=== PATIENT | male | born 1960 | race Caucasian/White ===

== ENCOUNTER 2019-06-14 07:18 | Emergency (ER) | payer MEDICAID, OTHER ==
[2019-06-14] MEDS ORDERED: ALBUTEROL INHALER 90MCG/INH IH ONE (07:58)
[2019-06-14] MEDS ORDERED: METHYLPREDNISOLONE SOD SUCC 125MG/2ML VIAL ONE (07:59)
== END 2019-06-14 08:17 | disposition left against medical advice (07) ==
LOC: EDBD 07:18 → EDH 07:18
DX: J44.9 Chronic obstructive pulmonary disease, unspecified (principal); Z76.5 Malingerer [conscious simulation]; J45.909 Unspecified asthma, uncomplicated; I10 Essential (primary) hypertension; I50.9 Heart failure, unspecified; Z72.0 Tobacco use
CPT/HCPCS: 96372; 99283; J2930

== ENCOUNTER 2019-07-09 16:46 | Inpatient (IN) | payer MEDICAID, OTHER ==
[~2019-07-09] VITALS: Ht 170.2 cm; Wt 66.4 kg
[~2019-07-09 16:46] MED LIST: ALBU0.63 IH; AZIT500T4 PO; GUAI120L62 PO; HYDR-4064 PO; LISI30TA4 PO; NAPR-1023 PO; PRED20TA3 PO
[2019-07-09] MEDS ORDERED: THIAMINE HCL 100 MG TABLET ONE (17:45)
[2019-07-09] MEDS ORDERED: AZITHROMYCIN 250 MG TABLET PO ONE (17:46)
[2019-07-09] MEDS ORDERED: METHYLPREDNISOLONE SOD SUCC 125MG/2ML VIAL ONE (17:46)
[2019-07-09] MEDS ORDERED: CEFTRIAXONE SODIUM 1 GM ONE (17:46)
[2019-07-09] MEDS ORDERED: TETANUS/DIPHTHERIA TOXOID [ADULT] 0.5 ML VIAL IM ONE (17:47)
[2019-07-09 18:37] LABS: APPEARANCE,URINE Clear (CLEAR); BILIRUBIN,URINE Negative (NEGATIVE); COLOR,URINE Yellow (YELLOW); GLUCOSE, URINE (UA) Negative (NEGATIVE); KETONES,URINE Trace mg/dL (NEGATIVE); LEUKOCYTE ESTERASE ,URINE Negative (NEGATIVE); NITRATE,URINE Negative (NEGATIVE); OCCULT BLOOD,URINE Negative (NEGATIVE); PROTEIN,URINE Negative (NEGATIVE)
[2019-07-09 18:45] LABS: AMPHET/METH SCREEN,URINE NEGATIVE (NEGATIVE); BARBITURATE SCREEN, URINE NEGATIVE (NEGATIVE); BENZODIAZEPINES SCREEN,URINE NEGATIVE (NEGATIVE); CANNABINOID SCREEN,URINE POSITIVE (NEGATIVE); COCAINE SCREEN,URINE NEGATIVE (NEGATIVE); OPIATE SCREEN,URINE POSITIVE (NEGATIVE); PHENCYCLIDINE SCREEN,URINE NEGATIVE (NEGATIVE)
[2019-07-09 18:58] LABS: BASOPHILS % (AUTO) 0.2 % (0.0-5.0); EOSINOPHILS % (AUTO) 0.4 % (0.0-8.0); HEMATOCRIT 38.5 % (42-54); LYMPHOCYTES % (AUTO) 17.2 % (21.0-51.0); MEAN CORPUSCULAR HEMOGLOBIN 33.4 pg (27.0-33.0); MEAN CORPUSCULAR HGB CONC 35.3 g/dL (32.0-36.0); MEAN CORPUSCULAR VOLUME 94.6 fL (79-99); MONOCYTES % (AUTO) 17.2 % (3.0-13.0); NEUTROPHILS % (AUTO) 63.5 % (40.0-77.0); NUCLEATED RED BLOOD CELLS 0.2 % (0.0-0.19); PLATELET COUNT (AUTO) 538 K/uL (130-400); RED BLOOD CELL COUNT(AUTO) 4.07 MIL/uL (4.50-6.20); RED CELL DISTRIBUTION WIDTH 15.3 % (11.0-15.5); WHITE BLOOD COUNT (AUTO) 13.1 K/uL (4.8-10.8)
[2019-07-09 19:04] LABS: BACTERIA,URINE Few /HPF (None Seen); MUCUS,URINE Few LPF (None Seen); SQUAMOUS EPITHELIAL CELL,UR Few /HPF (0-2)
[2019-07-09 19:08] LABS: AMYLASE 55 U/L (25-115); LIPASE 179 U/L (114-286)
[2019-07-09 19:17] LABS: POTASSIUM 3.6 mmol/L (3.5-5.1)
[2019-07-09 19:27] LABS: ALBUMIN 3.6 g/dL (3.5-5.0); BILIRUBIN,TOTAL 0.7 mg/dL (0.2-1.0); TOTAL PROTEIN, SERUM 6.3 g/dL (6.0-8.3)
[2019-07-09 19:35] LABS: CRP QUANTITATIVE < 2.00 mg/L (0.00-9.0); LACTATE DEHYDROGENASE 230 U/L (81-234)
[2019-07-09 19:53] LABS: INR 0.93 (0.85-1.15); PARTIAL THROMBOPLASTIN TIME 24.1 SEC (26.3-35.5); PROTHROMBIN TIME 10.1 SEC (9.6-11.6)
[2019-07-09] MEDS ORDERED: PHARMACY COMMUNICATION MISC PRN (20:00)
[2019-07-09] MEDS: CEFTRIAXONE SODIUM 1 GM IV SCH (20:00)
[2019-07-09] MEDS: AZITHROMYCIN 500MG+NS 250ML 250 ML IV SCH (20:00)
[2019-07-09] MEDS ORDERED: ONDANSETRON HCL 4 MG/2 ML VIAL IV PRN (20:00)
[2019-07-09] MEDS ORDERED: LACTULOSE 20 GM/30 ML UDCUP PO PRN (20:00)
[2019-07-09] MEDS ORDERED: THIAMINE HCL 100 MG, FOLIC ACID 1 MG, M.V.I. IV [ADULT] 10 ML in SODIUM CHLORIDE 0.9% 1... IV SCH (20:00)
[2019-07-09] MEDS ORDERED: ALBUTEROL INHALER 90MCG/INH IH PRN (20:00)
[2019-07-09] MEDS ORDERED: CHLORDIAZEPOXIDE HCL 25 MG CAP PO PRN ×2 (20:00)
[2019-07-09] MEDS ORDERED: ACETAMINOPHEN 325 MG TAB PO PRN ×2 (20:00)
[2019-07-09] MEDS ORDERED: LORAZEPAM 2 MG/ML 1 ML VIAL IVP PRN (20:00)
[2019-07-09 20:15] LABS: B-TYPE NATRIURETIC PEPTIDE 20 pg/mL (0-100)
[2019-07-09] MEDS: METHYLPREDNISOLONE SOD SUCC 40MG/ML 1ML IVP SCH (21:00)
[2019-07-09] MEDS: FAMOTIDINE 20MG TAB 20 MG TAB PO SCH (21:00)
[2019-07-09] MEDS ORDERED: HYDRALAZINE HCL 20 MG/ML VIAL IV PRN (21:15)
[2019-07-09] MEDS: LORAZEPAM 2 MG/ML 1 ML VIAL IVP PRN (22:43)
[2019-07-09 23:00] VITALS: BP 123/72
[2019-07-10 03:00] VITALS: BP 130/81
--- NOTE | 2019-07-10 07:30 | NUR ---
ASSESSMENT ENCOUNTERED PT A&OX3, CALM COOPERATIVE AND DOES NOT APPEAR TO BE IN ANY DISTRESS NOR ANY NEURO DEFICITS PRESENT. PT DENIES PAIN, SOB, NAUSEA. PT IS AMBULATORY, GAIT STEADY AND STRONG WITH STAND BY ASSIST. CALL LIGHT WITHIN REACH.
[2019-07-10 08:07] VITALS: BP 112/81
[2019-07-10 08:30] LABS: BASOPHILS % (AUTO) 0.6 % (0.0-5.0); HEMATOCRIT 40.6 % (42-54); LYMPHOCYTES % (AUTO) 3.9 % (21.0-51.0); MEAN CORPUSCULAR HEMOGLOBIN 32.6 pg (27.0-33.0); MEAN CORPUSCULAR HGB CONC 34.5 g/dL (32.0-36.0); MEAN CORPUSCULAR VOLUME 94.6 fL (79-99); MONOCYTES % (AUTO) 2.5 % (3.0-13.0); NEUTROPHILS % (AUTO) 91.2 % (40.0-77.0); PLATELET COUNT (AUTO) 534 K/uL (130-400); RED BLOOD CELL COUNT(AUTO) 4.29 MIL/uL (4.50-6.20); RED CELL DISTRIBUTION WIDTH 15.4 % (11.0-15.5); WHITE BLOOD COUNT (AUTO) 7.2 K/uL (4.8-10.8)
[2019-07-10 08:42] LABS: CREATININE 0.9 mg/dL (0.5-1.5); POTASSIUM 4.4 mmol/L (3.5-5.1)
[2019-07-10] MEDS ORDERED: ENOXAPARIN SODIUM 40 MG/0.4 ML SYRINGE SQ SCH (09:00)
[2019-07-10] MEDS ORDERED: LOPERAMIDE HCL 2 MG CAP PO SCH (11:00)
[2019-07-10] MEDS: METHYLPREDNISOLONE SOD SUCC 40MG/ML 1ML IVP SCH ×2 (11:10→20:59)
[2019-07-10] MEDS: FAMOTIDINE 20MG TAB 20 MG TAB PO SCH ×2 (11:11→20:59)
[2019-07-10] MEDS: LORAZEPAM 2 MG/ML 1 ML VIAL IVP PRN (11:23)
[2019-07-10 12:00] VITALS: BP 126/83
--- NOTE | 2019-07-10 14:14 | NUR ---
INITIAL FACE SHEET NUMBERS CHECKED AND NOT CORRECT FOR PATIENT. CALL TO [facility] PASTOR SANDRA, BACKGROUND INFO RECD. STATES HAS KNOWN PATIENT FOR MANY YEARS, IS ONLY CONTACT FOR PATIENT. LIVES IN [facility], NO FIXED ADDRESS, HAS [employer], GOES TO [facility] IN [place], FAMILY NUMBER GIVEN REGULO JOHNSON [phone] CALL IN TO PATIENT ROOM, PATIENT CONFIRMS ED SANDRA FIRST POINT OF CONTACT, CONFIRMS ED HAS SONS NUMBER BUT PATIENT DOES NOT, GAVE PERMISSION TO CALL REGULO JOHNSON TO UPDATE PATIENT STATES IS GOING TO TAKE CAB TO [place] TO BUY CLOTHES, THEN TAKE BUS TO BORDER ON DAY OF DISCHARGE, [facility] IS NOT GOING AMA AT THIS TIME Addendum: 07/10/19 at 1425 by IDALMIS HALE RN Amended: Links added.
--- NOTE | 2019-07-10 14:22 | NUR ---
[phone]- SON'S NUMBER, NOT IN SERVICE PATIENT STILL JUST HAS REC ED SANDRA ONLY POINT OF CONTACT, BUT THAT IS NOT LOCAL- LIVES IN [place]
[2019-07-10 16:36] VITALS: BP 111/76
[2019-07-10] MEDS ORDERED: HYDROCODONE/ACETAMINOPHEN 7.5/325 MG TAB PO PRN (18:45)
[2019-07-10 19:00] VITALS: BP 124/79
[2019-07-10] MEDS: CEFTRIAXONE SODIUM 1 GM IV SCH (20:59)
[2019-07-10] MEDS: AZITHROMYCIN 500MG+NS 250ML 250 ML IV SCH (20:59)
[2019-07-10] MEDS ORDERED: LACTOBACILLUS RHAMNOSUS GG 1 EACH CAP.SPRINK PO SCH (21:00)
--- NOTE | 2019-07-10 22:20 | NUR ---
Patient requesting crackers and juice, patient's room and bathroom smells like cigarette smoke, patient denies. Frame Expander made aware. Patient requesting to leave AMA and asked for help to pack up his belongings. Patient signed AMA papers, said he has no complaint, just can't be confined. He [facility]. IV removed and patient left the floor at 2247.
[2019-07-11] MEDS ORDERED: THIAMINE HCL 100 MG TABLET PO SCH (09:00)
[2019-07-11] MEDS ORDERED: FOLIC ACID/VITAMIN B COMP W-C 1 CAP TAB PO SCH (09:00)
[2019-07-17] MEDS ORDERED: ERGOCALCIFEROL (VITAMIN D2) 50,000 UNIT CAPSULE PO SCH (09:00)
== END 2019-07-10 22:47 | disposition left against medical advice (07) | DRG 871 ==
LOC: EDH 16:46 → EDHIP 16:47 → 2AH 21:55
PROVIDERS: ADMIT Internal Medicine; ATTEND Internal Medicine
PROC: 3E0234Z Introduction of Serum, Toxoid and Vaccine into Muscle, Percutaneous Approach (ICD-10-PCS; principal; 2019-07-09)
DX: A41.9 Sepsis, unspecified organism (principal); J18.9 Pneumonia, unspecified organism; J44.0 Chronic obstructive pulmonary disease with (acute) lower respiratory infection; J44.1 Chronic obstructive pulmonary disease with (acute) exacerbation; E87.1 Hypo-osmolality and hyponatremia; I11.0 Hypertensive heart disease with heart failure; F17.200 Nicotine dependence, unspecified, uncomplicated; Z53.29 Procedure and treatment not carried out because of patient's decision for other reasons; F10.20 Alcohol dependence, uncomplicated; I50.9 Heart failure, unspecified; Y90.1 Blood alcohol level of 20-39 mg/100 ml; F12.90 Cannabis use, unspecified, uncomplicated; F11.90 Opioid use, unspecified, uncomplicated; Z82.49 Family history of ischemic heart disease and other diseases of the circulatory system; Z71.41 Alcohol abuse counseling and surveillance of alcoholic; Z71.6 Tobacco abuse counseling; Z23 Encounter for immunization
CPT/HCPCS: 36415; 71045; 80048; 80053; 80305; 81001; 82150; 82550; 82728; 83605; 83615; 83690; 83880; 84145; 84484; 85025; 85378; 85610; 85730; 86140; 87040; 87633; 87804; 90714; 93005; G0378; G0480; J0456; J0696; J1650; J2060; J2920; J2930; J3411; J3490; J7030

== ENCOUNTER 2019-09-02 20:24 | Emergency (ER) | payer OTHER ==
[~2019-09-02 20:24] MED LIST changes: -AZIT500T4 PO
[2019-09-02 21:48] LABS: APPEARANCE,URINE Clear (CLEAR); BILIRUBIN,URINE Negative (NEGATIVE); COLOR,URINE Yellow (YELLOW); GLUCOSE, URINE (UA) Negative (NEGATIVE); KETONES,URINE Trace mg/dL (NEGATIVE); LEUKOCYTE ESTERASE ,URINE Negative (NEGATIVE); NITRATE,URINE Negative (NEGATIVE); OCCULT BLOOD,URINE Negative (NEGATIVE); PROTEIN,URINE Negative (NEGATIVE)
[2019-09-02 23:44] LABS: BASOPHILS % (AUTO) 0.6 % (0.0-5.0); EOSINOPHILS % (AUTO) 1.5 % (0.0-8.0); HEMATOCRIT 38.7 % (42-54); LYMPHOCYTES % (AUTO) 15.8 % (21.0-51.0); MEAN CORPUSCULAR HEMOGLOBIN 33.3 pg (27.0-33.0); MEAN CORPUSCULAR HGB CONC 35.4 g/dL (32.0-36.0); MEAN CORPUSCULAR VOLUME 93.9 fL (79-99); MONOCYTES % (AUTO) 10.7 % (3.0-13.0); NUCLEATED RED BLOOD CELLS 0.1 % (0.0-0.19); PLATELET COUNT (AUTO) 648 K/uL (130-400); RED BLOOD CELL COUNT(AUTO) 4.12 MIL/uL (4.50-6.20); RED CELL DISTRIBUTION WIDTH 15.6 % (11.0-15.5)
[2019-09-02 23:55] LABS: CREATININE 0.9 mg/dL (0.5-1.5); POTASSIUM 3.5 mmol/L (3.5-5.1)
[2019-09-02 23:56] LABS: INR 1.03 (0.85-1.15); PARTIAL THROMBOPLASTIN TIME 27.3 SEC (26.3-35.5); PROTHROMBIN TIME 11.1 SEC (9.6-11.6)
[2019-09-03] LABS: ALBUMIN 3.4 g/dL (3.5-5.0); BILIRUBIN,TOTAL 0.6 mg/dL (0.2-1.0); CRP QUANTITATIVE 7.1 mg/L (0.00-9.0); TOTAL PROTEIN, SERUM 6.9 g/dL (6.0-8.3)
[2019-09-03] MEDS ORDERED: LIDOCAINE HCL 2% VISCOUS 15 ML UDCUP ONE (00:05)
[2019-09-03] MEDS ORDERED: MAG HYDROX/AL HYDROX/SIMETH ES 30 ML SUSP UDCUP ONE (00:05)
== END 2019-09-03 01:56 | disposition home or self-care (01) ==
LOC: EDH 20:24
DX: R53.1 Weakness (principal); G89.29 Other chronic pain; M54.5 Low back pain; R42 Dizziness and giddiness; I11.0 Hypertensive heart disease with heart failure; I50.9 Heart failure, unspecified; J44.9 Chronic obstructive pulmonary disease, unspecified; Z98.890 Other specified postprocedural states; Z72.0 Tobacco use
CPT/HCPCS: 36415; 71045; 80053; 81003; 82550; 83880; 84484; 85025; 85610; 85651; 85730; 86140; 93005

== ENCOUNTER 2019-11-18 19:59 | Inpatient (IN) | payer MEDICAID, OTHER ==
[~2019-11-18] VITALS: Ht 162.6 cm; Wt 62.2 kg
[2019-11-18 20:42] LABS: BASOPHILS % (AUTO) 1.7 % (0.0-5.0); EOSINOPHILS % (AUTO) 2.9 % (0.0-8.0); HEMATOCRIT 43.6 % (42-54); LYMPHOCYTES % (AUTO) 24.7 % (21.0-51.0); MEAN CORPUSCULAR HEMOGLOBIN 32.8 pg (27.0-33.0); MEAN CORPUSCULAR HGB CONC 34.6 g/dL (32.0-36.0); MEAN CORPUSCULAR VOLUME 94.6 fL (79-99); MONOCYTES % (AUTO) 12.2 % (3.0-13.0); NEUTROPHILS % (AUTO) 57.7 % (40.0-77.0); PLATELET COUNT (AUTO) 400 K/uL (130-400); RED BLOOD CELL COUNT(AUTO) 4.61 MIL/uL (4.50-6.20); RED CELL DISTRIBUTION WIDTH 14.3 % (11.0-15.5)
[2019-11-18 20:57] LABS: CREATININE 1.4 mg/dL (0.5-1.5); POTASSIUM 4.2 mmol/L (3.5-5.1)
[2019-11-18 21:07] LABS: B-TYPE NATRIURETIC PEPTIDE 12 pg/mL (0-100)
[2019-11-18] MEDS ORDERED: METHYLPREDNISOLONE SOD SUCC 40MG/ML 1ML ONE (21:59)
[2019-11-18] MEDS ORDERED: CEFTRIAXONE SODIUM 1 GM ONE (22:00)
[2019-11-18] MEDS ORDERED: HYDRALAZINE HCL 20 MG/ML VIAL IV PRN (22:30)
[2019-11-18] MEDS ORDERED: LIDOCAINE HCL 2% VISCOUS 30 ML, MAG HYDROX/AL HYDROX/SIMETH 30 ML, BELLADONNA-PHENOBARB... PO PRN ×3 (22:30)
[2019-11-18] MEDS ORDERED: MAG HYDROX/AL HYDROX/SIMETH ES 30 ML SUSP UDCUP PO PRN (22:30)
[2019-11-18] MEDS ORDERED: ZOLPIDEM TARTRATE 5 MG TAB PO PRN (22:30)
[2019-11-18] MEDS ORDERED: ONDANSETRON HCL 4 MG/2 ML VIAL IV PRN (22:30)
[2019-11-18] MEDS ORDERED: DOXYCYCLINE 100MG+NS 250ML 250 ML IV SCH (22:30)
[2019-11-18] MEDS ORDERED: GUAIFENESIN-DM 200/20 MG 10 ML PO PRN (22:30)
[2019-11-18] MEDS ORDERED: DiphenhydrAMINE HCL 50 MG/ML VIAL IV PRN (22:30)
[2019-11-18] MEDS ORDERED: ACETAMINOPHEN 325 MG TAB PO PRN ×2 (22:30)
[2019-11-18] MEDS ORDERED: HYDROCODONE/ACETAMINOPHEN 5/325 MG TAB PO PRN ×2 (22:30)
[2019-11-18] MEDS ORDERED: NITROGLYCERIN 0.4 MG SL TAB SL PRN (22:30)
[2019-11-18] MEDS ORDERED: LACTULOSE 20 GM/30 ML UDCUP PO PRN (22:30)
[2019-11-18] MEDS ORDERED: DIPHENHYDRAMINE HCL 25 MG CAPSULE PO PRN (22:30)
[2019-11-18] MEDS ORDERED: MAG HYDROX/AL HYDROX/SIMETH 30 ML, LIDOCAINE HCL 2% VISCOUS 30 ML, DIPHENHYDRAMINE HCL ... PO PRN ×3 (22:30)
[2019-11-18] MEDS ORDERED: SODIUM CHLORIDE 0.9% 1000ML 1,000 ML IV SCH (22:30)
[2019-11-18] MEDS ORDERED: ALBUTEROL SULFATE 0.083% 2.5 MG/3 ML INH IH PRN (22:30)
[2019-11-19] VITALS (7 sets, daily range): BP systolic 100–151; BP diastolic 68–93
[2019-11-19] MEDS ORDERED: IOHEXOL-350 75 ML VIAL IV ONE (00:29)
[2019-11-19] MEDS: IPRATROPIUM 0.5 MG/2.5 ML INH IH SCH ×4 (01:27→15:21)
[2019-11-19] MEDS: ALBUTEROL SULFATE 0.083% 2.5 MG/3 ML INH IH SCH ×2 (01:27→04:50)
[2019-11-19] MEDS: METHYLPREDNISOLONE SOD SUCC 125MG/2ML VIAL IV SCH ×4 (05:03→18:19)
--- NOTE | 2019-11-19 05:38 | NUR ---
received report from norma escamilla, assumed care, admission assessment done, timed medication given, see emar, given gatorade and ice, educated pt. current daily smoker, safety maintained, care plan done outcome criteria done, will continue to monitor.
--- NOTE | 2019-11-19 08:30 | NUR ---
PT. AMBULATING IN HALLWAY, ON ROOM AIR, WITH SURGICAL MASK IN PLACE. INSTRUCTED PT. TO RETURN TO ROOM AND WILL BE ASSISTED SHORTLY. PT. STATES," I DIDN'T WANT TO BOTHER YOU. I JUST NEED SOME ALCOHOL, SOME GAUZE AND TAPE BECAUSE I SCRATCHED MYSELF AND MADE MYSELF BLEED." BLOOD NOTED TO RIGHT FOREARM. PROVIDED PT. WITH REQUIRED ITEMS, STATES," I CAN DO IT. THANK YOU."
[2019-11-19] MEDS: LISINOPRIL 10 MG TABLET PO SCH (09:00)
[2019-11-19] MEDS: BENZONATATE 100 MG CAPSULE PO SCH ×3 (09:15→21:03)
[2019-11-19] MEDS: DOXYCYCLINE HYCLATE 100 MG TABLET PO SCH ×2 (09:15→21:03)
[2019-11-19] MEDS: ENOXAPARIN SODIUM 40 MG/0.4 ML SYRINGE SQ SCH (09:15)
[2019-11-19 09:47] LABS: BASOPHILS % (AUTO) 0.6 % (0.0-5.0); HEMATOCRIT 43.6 % (42-54); LYMPHOCYTES % (AUTO) 6.4 % (21.0-51.0); MEAN CORPUSCULAR HGB CONC 35.1 g/dL (32.0-36.0); MONOCYTES % (AUTO) 1.7 % (3.0-13.0); NEUTROPHILS % (AUTO) 89.7 % (40.0-77.0); PLATELET COUNT (AUTO) 443 K/uL (130-400); RED BLOOD CELL COUNT(AUTO) 4.64 MIL/uL (4.50-6.20); RED CELL DISTRIBUTION WIDTH 14.1 % (11.0-15.5); WHITE BLOOD COUNT (AUTO) 6.4 K/uL (4.8-10.8)
[2019-11-19 10:09] LABS: ALBUMIN 4.5 g/dL (3.5-5.0); BILIRUBIN,TOTAL 0.6 mg/dL (0.2-1.0); CREATININE 1.3 mg/dL (0.5-1.5); MAGNESIUM 1.9 mg/dL (1.80-2.40); PHOSPHORUS 4.7 mg/dL (2.5-4.9); POTASSIUM 4.7 mmol/L (3.5-5.1)
[2019-11-19] MEDS ORDERED: COMPOUND PO MISCELLANEOUS 1 EACH MISC MISC PRN (11:15)
[2019-11-19] MEDS ORDERED: MAG HYDROX/AL HYDROX/SIMETH 30 ML, LIDOCAINE HCL 2% VISCOUS 30 ML, DIPHENHYDRAMINE HCL ... PO PRN ×3 (11:15)
[2019-11-19] MEDS ORDERED: LIDOCAINE HCL 2% VISCOUS 30 ML, MAG HYDROX/AL HYDROX/SIMETH 30 ML, DICYCLOMINE HCL 20 MG PO PRN ×3 (11:15)
--- NOTE | 2019-11-19 15:24 | NUR ---
Pt still pending PRC swab. changing nebulizers to MDIs. Addendum: 11/19/19 at 1525 by RT DESIREE RT Amended: Links added.
[2019-11-19] MEDS: NICOTINE 21 MG/ 24 HR PATCH TD SCH (21:17)
[2019-11-20] MEDS: METHYLPREDNISOLONE SOD SUCC 125MG/2ML VIAL IV SCH ×3 (01:44→05:27)
[2019-11-20] MEDS: ALBUTEROL INHALER 90MCG/INH IH SCH ×2 (01:44→04:59)
[2019-11-20 03:00] VITALS: BP 143/86
[2019-11-20] MEDS: ENOXAPARIN SODIUM 40 MG/0.4 ML SYRINGE SQ SCH (08:33)
[2019-11-20] MEDS: DOXYCYCLINE HYCLATE 100 MG TABLET PO SCH (08:33)
[2019-11-20] MEDS: LISINOPRIL 10 MG TABLET PO SCH (08:33)
[2019-11-20] MEDS: BENZONATATE 100 MG CAPSULE PO SCH (08:33)
[2019-11-20 08:35] VITALS: BP 113/73
[2019-11-20] MEDS: NICOTINE 21 MG/ 24 HR PATCH TD SCH (08:52)
[2019-11-20 10:03] VITALS: BP 113/73
--- NOTE | 2019-11-20 10:57 | NUR ---
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 Pt notified several times by multiple staff members of discharge process. No evidence of learning noted. 1055: Pt standing in threshold of door stating, "Hell, I'm leaving I ain't waiting here no more." Pt demanding confiscated cigarettes and statistics tutor, brought up by hospital security at this time. IV access removed and bandage dressing applied. Pt signed AMA and Returned valuables form. Given belongings and escorted out of building by hospital security, with even, steady, unassisted gait.
--- NOTE | 2019-11-20 11:04 | NUR ---
DC PLAN PATIENT M[facility] [place]. STAYING AT A HOTEL. NO SERVICES NO EQUIPMENT. 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 WANTS TO GO TO [facility]. WENT INTO ROOM TO EXPLAIN PROCESS OF GOING TO A FACILITY. SAID JOANNE HAD ALREADY TOLD HER HE WAS READY TO GO OVER THERE. CALLED JOANNE SAID THAT SHE TOLD HIM NEEDED REFERRAL AND THAT IF HE WANTS INDEPENDENT LIVING IT WILL BE 3500 A MONTH. HE SAID THAT WAS TO MUCH. I TRIED TALKING TO PATENT VERY AGITATED. YELLED AT ME AND NURSE SAID A LOT OF THINGS REGARDING THE [facility], NURSING, AND PEOPLE. LET DR. RUEDA AND DIRECTOR KNOW OF MULTIPLE CONVERSATIONS. PATIENT IN [facility] DEMANDING AMA. Addendum: 11/20/19 at 1109 by ABBY GRIFFIN RN Amended: Links added.
--- NOTE | 2019-11-20 11:35 | NUR ---
Pt found after smoking cigarettes in bathroom. automobile appraiser and Security notified. Security confiscated cigarettes after leaving room
== END 2019-11-20 11:03 | disposition left against medical advice (07) | DRG 192 ==
LOC: EDH 19:59 → EDHIP 22:30 → 2AH 11-19 02:58
PROVIDERS: ADMIT Internal Medicine; ATTEND Internal Medicine
DX: J44.1 Chronic obstructive pulmonary disease with (acute) exacerbation (principal); I10 Essential (primary) hypertension; G89.29 Other chronic pain; Z87.891 Personal history of nicotine dependence; Z83.6 Family history of other diseases of the respiratory system; Z82.49 Family history of ischemic heart disease and other diseases of the circulatory system
CPT/HCPCS: 36415; 71046; 71275; 80048; 80053; 83735; 83880; 84100; 84484; 85025; 87426; 94640; 94664; G0378; J0696; J1650; J2920; J2930; Q9967

== ENCOUNTER 2019-11-23 20:28 | Emergency (ER) | payer OTHER ==
[2019-11-23] MEDS ORDERED: IPRATROPIUM/ALBUTEROL SULFATE 3 ML SOLUTION IH ONE (21:08)
[2019-11-24] MEDS ORDERED: IPRATROPIUM/ALBUTEROL SULFATE 3 ML SOLUTION IH ONE (00:40)
[2019-11-24] MEDS ORDERED: DEXAMETHASONE 4 MG TAB ONE (00:40)
== END 2019-11-24 01:14 | disposition left against medical advice (07) ==
LOC: EDH 20:28
DX: J44.1 Chronic obstructive pulmonary disease with (acute) exacerbation (principal); I11.0 Hypertensive heart disease with heart failure; I50.9 Heart failure, unspecified; Z72.0 Tobacco use
CPT/HCPCS: 71045; 94640; 99283; J8540

== ENCOUNTER 2019-11-28 09:30 | Inpatient (IN) | payer OTHER ==
[~2019-11-28] VITALS: Ht 175.3 cm; Wt 60.3 kg
[2019-11-28] MEDS ORDERED: ALBUTEROL INHALER 90MCG/INH IH ONE (10:42)
[2019-11-28 11:37] LABS: BASOPHILS % (AUTO) 0.6 % (0.0-5.0); EOSINOPHILS % (AUTO) 1.5 % (0.0-8.0); HEMATOCRIT 40.1 % (42-54); LYMPHOCYTES % (AUTO) 16.3 % (21.0-51.0); MEAN CORPUSCULAR HEMOGLOBIN 32.9 pg (27.0-33.0); MEAN CORPUSCULAR HGB CONC 35.2 g/dL (32.0-36.0); MEAN CORPUSCULAR VOLUME 93.5 fL (79-99); MONOCYTES % (AUTO) 9.5 % (3.0-13.0); NEUTROPHILS % (AUTO) 70.4 % (40.0-77.0); NUCLEATED RED BLOOD CELLS 0.1 % (0.0-0.19); PLATELET COUNT (AUTO) 457 K/uL (130-400); RED BLOOD CELL COUNT(AUTO) 4.29 MIL/uL (4.50-6.20); RED CELL DISTRIBUTION WIDTH 14.1 % (11.0-15.5); WHITE BLOOD COUNT (AUTO) 14.2 K/uL (4.8-10.8)
[2019-11-28 11:39] LABS: AMPHET/METH SCREEN,URINE NEGATIVE (NEGATIVE); BARBITURATE SCREEN, URINE NEGATIVE (NEGATIVE); BENZODIAZEPINES SCREEN,URINE NEGATIVE (NEGATIVE); CANNABINOID SCREEN,URINE POSITIVE (NEGATIVE); COCAINE SCREEN,URINE NEGATIVE (NEGATIVE); OPIATE SCREEN,URINE NEGATIVE (NEGATIVE); PHENCYCLIDINE SCREEN,URINE NEGATIVE (NEGATIVE)
[2019-11-28 11:46] LABS: CREATININE 0.7 mg/dL (0.5-1.5); POTASSIUM 3.6 mmol/L (3.5-5.1)
[2019-11-28 11:50] LABS: ALBUMIN 3.6 g/dL (3.5-5.0); BILIRUBIN,TOTAL 0.5 mg/dL (0.2-1.0); INR 0.93 (0.85-1.15); PARTIAL THROMBOPLASTIN TIME 25.3 SEC (26.3-35.5); PROTHROMBIN TIME 10.1 SEC (9.6-11.6); TOTAL PROTEIN, SERUM 7.1 g/dL (6.0-8.3)
[2019-11-28] MEDS ORDERED: METHYLPREDNISOLONE SOD SUCC 125MG/2ML VIAL ONE (12:17)
[2019-11-28 12:29] LABS: B-TYPE NATRIURETIC PEPTIDE 24 pg/mL (0-100)
[2019-11-28] MEDS ORDERED: ONDANSETRON HCL 4 MG/2 ML VIAL IV PRN (15:00)
[2019-11-28] MEDS ORDERED: ACETAMINOPHEN 325 MG TAB PO PRN (15:00)
[2019-11-28] MEDS ORDERED: ALBUTEROL SULFATE 0.083% 2.5 MG/3 ML INH IH PRN (15:15)
[2019-11-28] MEDS ORDERED: LEVOFLOXACIN 500 MG/D5W 100 ML 100 ML ONE (17:15)
--- NOTE | 2019-11-28 17:49 | NUR ---
PT LEFT AT ROOM, RN ENTER TO ASSES PT AND PT DEMANDED RN TO BRING MEDICATIONS FROM HIS SUITCASE. RN TRYING TO EDUCATE PT ABOUT DOCTORS PRESCRIBED MEDICATIONS V. HOME MEDS. PT BECAME BELLIGERENT AND STARTED YELLING AT RN. RN CALLED SECURITY TO ASK FOR HELP, SINCE PT THREATENED AND JUMPED OUT OF BED IN VIOLENT WAY. Addendum: 11/28/19 at 1812 by RODNEY BONE RN RN UPON SECURITY ARRIVAL PT CALM DOWN AND ALLOWED RN TO INITIATE ADMISSION PROCESS. PT APOLOGIZED WITH RN. PER SECURITY REPORT THIS PATIENT HAVE BEEN FOUND SMOKING IN THE ROOM PREVIOUSLY, WILL MONITOR CLOSELY.
[2019-11-28] MEDS ORDERED: IPRATROPIUM/ALBUTEROL SULFATE 3 ML SOLUTION IH SCH (18:00)
[2019-11-28] MEDS: LEVOFLOXACIN 500 MG/D5W 100 ML 100 ML IV SCH (18:13)
[2019-11-28 18:23] VITALS: BP 140/65
[2019-11-28] MEDS ORDERED: PHARMACY COMMUNICATION MISC SCH (18:30)
[2019-11-28] MEDS: METHYLPREDNISOLONE SOD SUCC 40MG/ML 1ML IVP SCH (20:39)
[2019-11-28] MEDS: FAMOTIDINE/PF 20 MG/2 ML VIAL IV SCH (20:39)
[2019-11-29] MEDS: ALBUTEROL INHALER 90MCG/INH IH SCH ×5 (00:50→23:47)
[2019-11-29] MEDS ORDERED: CHLORDIAZEPOXIDE HCL 25 MG CAP PO PRN ×2 (01:45)
[2019-11-29] MEDS ORDERED: PHARMACY COMMUNICATION MISC PRN (01:45)
[2019-11-29] MEDS: THIAMINE HCL 100 MG, FOLIC ACID 1 MG, M.V.I. IV [ADULT] 10 ML in SODIUM CHLORIDE 0.9% 1... IV SCH ×2 (01:45→16:19)
[2019-11-29] MEDS ORDERED: PROMETHAZINE HCL 25 MG TABLET PO PRN (01:45)
[2019-11-29] MEDS ORDERED: LORAZEPAM 2 MG/ML 1 ML VIAL IVP PRN (01:45)
[2019-11-29] MEDS: HYDROCODONE/ACETAMINOPHEN 5/325 MG TAB PO PRN ×4 (03:47→23:46)
[2019-11-29] MEDS: METHYLPREDNISOLONE SOD SUCC 40MG/ML 1ML IVP SCH ×3 (04:42→20:41)
[2019-11-29] MEDS: LORAZEPAM 2 MG/ML 1 ML VIAL IVP PRN ×5 (04:43→20:44)
[2019-11-29] MEDS ORDERED: HYDRALAZINE HCL 20 MG/ML VIAL IM PRN (05:15)
[2019-11-29 05:24] LABS: BASOPHILS % (AUTO) 0.4 % (0.0-5.0); HEMATOCRIT 46.8 % (42-54); LYMPHOCYTES % (AUTO) 4.1 % (21.0-51.0); MEAN CORPUSCULAR HEMOGLOBIN 32.3 pg (27.0-33.0); MEAN CORPUSCULAR HGB CONC 34.4 g/dL (32.0-36.0); MEAN CORPUSCULAR VOLUME 93.8 fL (79-99); MONOCYTES % (AUTO) 5.8 % (3.0-13.0); NEUTROPHILS % (AUTO) 87.2 % (40.0-77.0); PLATELET COUNT (AUTO) 510 K/uL (130-400); RED BLOOD CELL COUNT(AUTO) 4.99 MIL/uL (4.50-6.20); RED CELL DISTRIBUTION WIDTH 14.1 % (11.0-15.5); WHITE BLOOD COUNT (AUTO) 15.7 K/uL (4.8-10.8)
--- NOTE | 2019-11-29 05:25 | NUR ---
Patient was uncooperative at start of this shift, but is now pleasant and cooperative. Patient says he now has a change of heart and wants to be treated so he can get better. He agreed for AM labs draw and took all of his medications. Patient however, is still refusing hospital cleaning specialist. He says he has no cardiac issues. Patient has a couple of pill bottles at bedside, most of which are empty; he says he takes only his pain medications and his blood pressure pills. Patient said those are finished for which he is here for refill. Patient is on ETOH protocol. Banana bag ordered but not available at this time. Will followup with pharmacist arrival. No acute distress at this time. Following POC.
[2019-11-29 05:42] LABS: ALBUMIN 3.9 g/dL (3.5-5.0); BILIRUBIN,TOTAL 0.7 mg/dL (0.2-1.0); CREATININE 1.1 mg/dL (0.5-1.5); MAGNESIUM 1.7 mg/dL (1.80-2.40); PHOSPHORUS 4.1 mg/dL (2.5-4.9); POTASSIUM 4.5 mmol/L (3.5-5.1); TOTAL PROTEIN, SERUM 8.1 g/dL (6.0-8.3)
[2019-11-29] MEDS: FAMOTIDINE/PF 20 MG/2 ML VIAL IV SCH ×2 (08:25→20:41)
[2019-11-29 08:56] VITALS: BP 120/78
[2019-11-29] MEDS ORDERED: ENOXAPARIN SODIUM 30 MG/0.3 ML SQ SCH (09:00)
[2019-11-29] MEDS ORDERED: THIAMINE HCL 100 MG/ML 2ML VIAL IM SCH (09:00)
[2019-11-29] MEDS ORDERED: LISINOPRIL 20 MG TABLET PO SCH (09:00)
[2019-11-29] MEDS ORDERED: MULTIVITAMIN TABLET PO SCH (09:00)
[2019-11-29] MEDS ORDERED: FOLIC ACID 1 MG TABLET PO SCH (09:00)
[2019-11-29 12:02] VITALS: BP 94/63
[2019-11-29] MEDS ORDERED: COMPOUND IV REFRIGERATED 1 EACH IVSOLN MISC PRN (12:30)
[2019-11-29] MEDS: GUAIFENESIN-DM 200/20 MG 10 ML PO PRN ×2 (14:04→23:09)
--- NOTE | 2019-11-29 14:31 | NUR ---
SMOKING Upon comming into the room, strong smell of sigarets are noted. When asked about it, pt states, "no ma'am,did not smoke" Education about consequences of smoking in the hospital was provided. Will continue to reinforcement of compliance
[2019-11-29] MEDS: LEVOFLOXACIN 500 MG/D5W 100 ML 100 ML IV SCH (14:34)
--- NOTE | 2019-11-29 15:04 | NUR ---
SECURITY SECURITY WAS CALLED AT THE BEDSIDE. CIGARETTES AND INTELLIGENCE CLERK WAS TAKEN AWAY UNTIL DC. PT IS COOPERATIVE AT THIS TIME
[2019-11-29 15:52] VITALS: BP 106/72
--- NOTE | 2019-11-29 17:59 | NUR ---
AGITATION Pt is getting more agitated. Restless, looking for his "smoke". Asked for Baldwin "REJI". Ativan given per protocol. Very unpleasant and rude to staff. Refused IV infusion.
--- NOTE | 2019-11-29 18:22 | NUR ---
INITIAL SW spoke with patient's friend, Lio Nelson who lives in [facility]. Friend states that he is not sure where patient lives since he moved to the [facility]. As per friend, patient was under [facility] in [facility] and lived in a hospice home. Patient didn't like the hospice home because he could not smoke close to building. Patient came to [place] and friend is not sure where patient is presently staying. Patient has no DME or local PCP. He is a and has [facility]. Patient is able to complete ADL's independently but does not drive as per friend. Friend states that patient informed him that he would be going to a nursing facility once discharged from hospital. CM/SW will follow up with patient regarding discharge disposition. Friend also stated that patient does receive SSI but usually spends it in the first two weeks of the month. Hx of alcohol abuse. DCP is possible SNF. Addendum: 11/29/19 at 1826 by JOANNE AVILES SS Amended: Links added.
[2019-11-29] MEDS: ACETAMINOPHEN 325 MG TAB PO PRN ×3 (23:09→23:57)
[2019-11-30] VITALS: BP 119/60
--- NOTE | 2019-11-30 | NUR ---
Patient became agitated, very demanding and verbally abusive. He removed his IV access and refused restart. CIWA score is 19. Hospitalist Joaquina Salas informed. Order given for IM Ativan 4mg per CIWA score protocol. 0030. Patient medicated as ordered. 0130: Patient becomes more demanding and verbally abusive. Demanding for his room 229 to be cleaned right now. Patient told that housekeeping will be coming in to clean his room, but he said he could not wait and that the nurse should do it now. This nurse told pt that he needed to wait for house keeping, and that we had no mop available to clean his floor now per his request. 0145: Patient is out in [address] at nurses station with all of his belongings and getting ready to leave the unit. Charged nurse was on the unit at the time and pt was given AMA paper which he signed and was taken down in WC by the charge nurse. Patient is in stable condition with no acute distress at time of leaving the unit. board mill supervisor and hospitalist informed
[2019-11-30] MEDS ORDERED: LORAZEPAM 2 MG/ML 1 ML VIAL IM PRN (00:30)
--- NOTE | 2019-11-30 05:07 | NUR ---
Librium one cap and Solu-Medrol could not be returned to [facility] because pt was already removed from system. Both Meds given to charged nurse Tatum to return to Pharmacy.
== END 2019-11-30 01:50 | disposition left against medical advice (07) | DRG 192 ==
LOC: EDH 09:30 → EDHIP 15:12 → 2AH 16:49
PROVIDERS: ADMIT Family Medicine; ATTEND Family Medicine
DX: J44.1 Chronic obstructive pulmonary disease with (acute) exacerbation (principal); Z20.828 Contact with and (suspected) exposure to other viral communicable diseases; F17.200 Nicotine dependence, unspecified, uncomplicated; F12.90 Cannabis use, unspecified, uncomplicated; R09.02 Hypoxemia; F19.10 Other psychoactive substance abuse, uncomplicated; I11.0 Hypertensive heart disease with heart failure; R06.03 Acute respiratory distress; I50.9 Heart failure, unspecified; J45.909 Unspecified asthma, uncomplicated; Z91.19 Patient's noncompliance with other medical treatment and regimen; Z83.6 Family history of other diseases of the respiratory system; Z82.49 Family history of ischemic heart disease and other diseases of the circulatory system; Z82.0 Family history of epilepsy and other diseases of the nervous system
CPT/HCPCS: 36415; 71045; 80053; 80305; 83735; 83880; 84100; 84484; 85025; 85610; 85730; 87426; 93005; 94664; G0378; J1650; J1956; J2060; J2920; J2930; J3411; J3490; J7030; U0003

== ENCOUNTER 2019-12-01 13:41 | Inpatient (IN) | payer OTHER ==
[~2019-12-01] VITALS: Ht 167.6 cm; Wt 63.3 kg
[2019-12-01] MEDS ORDERED: CEFTRIAXONE SODIUM 1 GM ONE ×2 (15:12→15:23)
[2019-12-01 15:17] LABS: BASOPHILS % (AUTO) 0.3 % (0.0-5.0); EOSINOPHILS % (AUTO) 0.7 % (0.0-8.0); HEMATOCRIT 37.6 % (42-54); LYMPHOCYTES % (AUTO) 17.3 % (21.0-51.0); MEAN CORPUSCULAR HEMOGLOBIN 32.7 pg (27.0-33.0); MEAN CORPUSCULAR HGB CONC 34.6 g/dL (32.0-36.0); MEAN CORPUSCULAR VOLUME 94.7 fL (79-99); NEUTROPHILS % (AUTO) 66.2 % (40.0-77.0); NUCLEATED RED BLOOD CELLS 0.1 % (0.0-0.19); PLATELET COUNT (AUTO) 431 K/uL (130-400); RED BLOOD CELL COUNT(AUTO) 3.97 MIL/uL (4.50-6.20); RED CELL DISTRIBUTION WIDTH 14.6 % (11.0-15.5); WHITE BLOOD COUNT (AUTO) 15.1 K/uL (4.8-10.8)
[2019-12-01] MEDS ORDERED: LIDOCAINE HCL-MPF 1% 2ML VIAL ONE (15:22)
[2019-12-01 15:31] LABS: POTASSIUM 3.6 mmol/L (3.5-5.1)
[2019-12-01 15:36] LABS: ALBUMIN 3.6 g/dL (3.5-5.0); BILIRUBIN,TOTAL 0.4 mg/dL (0.2-1.0); TOTAL PROTEIN, SERUM 6.7 g/dL (6.0-8.3)
[2019-12-01 16:54] LABS: AMPHET/METH SCREEN,URINE NEGATIVE (NEGATIVE); BARBITURATE SCREEN, URINE NEGATIVE (NEGATIVE); BENZODIAZEPINES SCREEN,URINE NEGATIVE (NEGATIVE); CANNABINOID SCREEN,URINE POSITIVE (NEGATIVE); COCAINE SCREEN,URINE NEGATIVE (NEGATIVE); OPIATE SCREEN,URINE NEGATIVE (NEGATIVE); PHENCYCLIDINE SCREEN,URINE NEGATIVE (NEGATIVE)
[2019-12-01] MEDS: SODIUM CHLORIDE 0.9% 1000ML 1,000 ML IV SCH (17:30)
[2019-12-01] MEDS ORDERED: NITROGLYCERIN 0.4 MG SL TAB SL PRN (17:30)
[2019-12-01] MEDS ORDERED: ZOSYN 3.375GM+NS 50ML 50 ML IV SCH (17:30)
[2019-12-01] MEDS ORDERED: ONDANSETRON HCL 4 MG/2 ML VIAL IV PRN (17:30)
[2019-12-01] MEDS ORDERED: ACETAMINOPHEN 325 MG TAB PO PRN (17:30)
[2019-12-01] MEDS ORDERED: LACTULOSE 20 GM/30 ML UDCUP PO PRN (17:30)
[2019-12-01] MEDS ORDERED: PHARMACY COMMUNICATION MISC PRN (18:00)
[2019-12-01] MEDS ORDERED: CHLORDIAZEPOXIDE HCL 25 MG CAP PO PRN (18:00)
[2019-12-01] MEDS ORDERED: THIAMINE HCL 100 MG, FOLIC ACID 1 MG, M.V.I. IV [ADULT] 10 ML in SODIUM CHLORIDE 0.9% 1... IV SCH (18:00)
[2019-12-01 18:07] LABS: APPEARANCE,URINE Clear (CLEAR); BILIRUBIN,URINE Negative (NEGATIVE); COLOR,URINE Yellow (YELLOW); GLUCOSE, URINE (UA) Negative (NEGATIVE); KETONES,URINE Negative (NEGATIVE); LEUKOCYTE ESTERASE ,URINE Negative (NEGATIVE); NITRATE,URINE Negative (NEGATIVE); OCCULT BLOOD,URINE Negative (NEGATIVE); PROTEIN,URINE Negative (NEGATIVE)
[2019-12-01] MEDS ORDERED: ALBUTEROL INHALER 90MCG/INH IH ONE (18:40)
[2019-12-01 18:42] LABS: MAGNESIUM 1.8 mg/dL (1.80-2.40); PHOSPHORUS 3.8 mg/dL (2.5-4.9)
[2019-12-01 18:45] LABS: INR 0.91 (0.85-1.15); PARTIAL THROMBOPLASTIN TIME 23.4 SEC (26.3-35.5); PROTHROMBIN TIME 9.9 SEC (9.6-11.6)
[2019-12-01] MEDS ORDERED: ZOSYN 3.375GM+NS 50ML 50 ML IV ONE (19:58)
--- NOTE | 2019-12-01 20:12 | NUR ---
LEFT BASILIC VEIN SUCCESSFULLY ACCESSED. 5 FR 2 LUMEN PICC LINE INSERTED, USING ASEPTIC TECHNIQUE. CATHETER TRIMMED TO 44CM AND ADVANCED USING VPS NAVIGATION WITH (+)BULLEYE AT 40 CM INTERNALLY, WHICH INDICATES PICC TIP AT LOWER 1/3 OF SVC OR AT CAVOATRIAL JUNCTION. 4CM EXTERNAL CATHETER SECURED WITH BIOPATCH, SHERLOCK AND STAT LOCK AT INSERTION SITE AND STERILE PICC DRESSING APPLIED. BOTH PORTS HAVE GOOD BLOOD RETURN AND FLUSHED EASILY AND CLAMPED. PICC IS OK TO USE PER PROTOCOL. RN AWARE.
[2019-12-01] MEDS ORDERED: HYDROCODONE/ACETAMINOPHEN 10/325 MG TAB ONE (20:46)
[2019-12-01] MEDS ORDERED: LORAZEPAM 2 MG/ML 1 ML VIAL ONE (20:47)
--- NOTE | 2019-12-01 22:30 | NUR ---
Admission note: Admitted to floor via stretcher. Pt. lethargic but responsive, oriented x2. VS checked and recorded. Physical assessment done. ( See CPOE flow chart for full assessment) Has PICC line to left upper arm - patent and intact with Banana Bag running at 100 ml/hr. Plan of care initiated. on CIWA Protocol. Photo of the wound taken and attached to chart. Per ER staff report Dr. Pacheco ( ID) aware and will visit pt in AM. Dr. Ruiz made aware too. Kept monitored and observed for any unusualities. No apparent distress noted. Needs attended.
[2019-12-01 22:35] VITALS: BP 117/80
[2019-12-02] MEDS: HYDROCODONE/ACETAMINOPHEN 5/325 MG TAB PO PRN ×3 (00:01→09:37)
[2019-12-02 00:16] VITALS: BP 114/70
[2019-12-02] MEDS: LORAZEPAM 2 MG/ML 1 ML VIAL IVP PRN ×3 (01:21→09:37)
[2019-12-02 04:16] VITALS: BP 133/79
[2019-12-02] MEDS: ZOSYN 3.375GM+NS 50ML 50 ML IV SCH ×2 (04:42→12:06)
--- NOTE | 2019-12-02 06:15 | NUR ---
Dr. Ruiz rounded: Seen and examined pt. and did the wound care dressing. No new orders at this time.
[2019-12-02 06:43] LABS: BASOPHILS % (AUTO) 0.3 % (0.0-5.0); EOSINOPHILS % (AUTO) 1.2 % (0.0-8.0); HEMATOCRIT 34.3 % (42-54); LYMPHOCYTES % (AUTO) 18.5 % (21.0-51.0); MEAN CORPUSCULAR HEMOGLOBIN 32.6 pg (27.0-33.0); MEAN CORPUSCULAR HGB CONC 34.1 g/dL (32.0-36.0); MEAN CORPUSCULAR VOLUME 95.5 fL (79-99); MONOCYTES % (AUTO) 20.6 % (3.0-13.0); NEUTROPHILS % (AUTO) 58.5 % (40.0-77.0); PLATELET COUNT (AUTO) 353 K/uL (130-400); RED BLOOD CELL COUNT(AUTO) 3.59 MIL/uL (4.50-6.20); RED CELL DISTRIBUTION WIDTH 14.5 % (11.0-15.5); WHITE BLOOD COUNT (AUTO) 12.7 K/uL (4.8-10.8)
[2019-12-02 07:01] LABS: ALBUMIN 3.1 g/dL (3.5-5.0); BILIRUBIN,TOTAL 0.5 mg/dL (0.2-1.0); CREATININE 0.8 mg/dL (0.5-1.5); POTASSIUM 3.5 mmol/L (3.5-5.1); TOTAL PROTEIN, SERUM 5.8 g/dL (6.0-8.3)
--- NOTE | 2019-12-02 07:30 | NUR ---
PAIN MED PT IS WANTING PAIN MED AT THIS TIME, HOWEVER, PAIN MED IS NOT DUE TIL 9:30. PT VERY AGITATED, RESTLESS, AND IS ASKING FOR COFFEE SINCE 5 THIS AM. HE HAS RECEIVED 2 CUPS SO FAR.
[2019-12-02] MEDS: SODIUM CHLORIDE 0.9% 1000ML 1,000 ML IV SCH (07:34)
[2019-12-02 08:20] VITALS: BP 121/89
--- NOTE | 2019-12-02 08:30 | NUR ---
PAIN MED PATIENT CONTINUE TO PUT LEAD SEWAGE PLANT OPERATOR LIGHT FOR PAIN MED, EXPLAIN TO PATIENT PAIN MED IS NOT DUE YET. I ALSO WROTE, PAIN MED TIME ON WHITE BOARD SO HE WILL BE ABLE TO SEE WHEN PAIN MED IS DUE.
[2019-12-02] MEDS ORDERED: ENOXAPARIN SODIUM 40 MG/0.4 ML SYRINGE SQ SCH (09:00)
--- NOTE | 2019-12-02 11:29 | NUR ---
PT ASKING FOR ALBUTEROL INHALER PLANNING COORDINATOR NOTIFIED
[2019-12-02 11:31] VITALS: BP 130/88
[2019-12-02] MEDS ORDERED: ALBUTEROL SULFATE 0.042% 1.25 MG/3 ML INH IH SCH ×2 (11:45→12:00)
[2019-12-02] MEDS ORDERED: OXYCODONE HCL 5 MG TAB PO PRN (11:45)
[2019-12-02] MEDS ORDERED: HYDROCODONE/ACETAMINOPHEN 5/325 MG TAB PO PRN (13:30)
--- NOTE | 2019-12-02 16:04 | NUR ---
refused pt is refusing to get vs and is wanting to leave AMA. He wants for picc line to be removed or he is going to pull it out. I paged Dr Puente to make him aware.
--- NOTE | 2019-12-02 16:11 | NUR ---
PT WANTS TO LEAVE AMA PT CAME TO THE HALLWAY TO ASK TO GET THE PICC LINE REMOVED.
--- NOTE | 2019-12-02 16:30 | NUR ---
Referral from MAXIMINO Caballero-Pt. requesting to speak with social science instructor SW visited pt's room, pt. stated that he did not ask to speak with me. SW made inquiries if there was anything SW could assist with. Pt. verbalized"no", I don't want to speak with you. Message left for MAXIMINO Caballero of above.
--- NOTE | 2019-12-02 16:38 | NUR ---
DAIRY DEPARTMENT MANAGER KATHE MCCOY SPOKE WITH KATHE MCCOY DAIRY DEPARTMENT MANAGER, SHE IS AWARE PATIENT WANTS LEAVE AMA. ORDER TO REMOVE PICC LINE AND PT CAN LEAVE.
--- NOTE | 2019-12-02 16:49 | NUR ---
PICC LINE PICC LINE REMOVED NO COMPLICATION UPON REMOVAL. PT STATES HE UNDERSTANDS AND IS AWARE WHAT IT MEANS TO LEAVE AMA AND STATED, HE HAD DONE THIS BEFORE.
--- NOTE | 2019-12-02 17:04 | NUR ---
AMA PT SIGNED AMA FORM AND LEFT WITH A SUITCASE AND HIS BELONGINGS. NO COMPLICATIONS UPON LEAVING.
== END 2019-12-02 17:00 | disposition left against medical advice (07) | DRG 603 ==
LOC: EDH 13:41 → EDHIP 17:30 → 3CH 22:27
PROVIDERS: ADMIT Internal Medicine; ATTEND Internal Medicine
PROC: 05HY33Z Insertion of Infusion Device into Upper Vein, Percutaneous Approach (ICD-10-PCS; principal; 2019-12-01)
DX: L03.116 Cellulitis of left lower limb (principal); F10.10 Alcohol abuse, uncomplicated; F17.200 Nicotine dependence, unspecified, uncomplicated; I11.0 Hypertensive heart disease with heart failure; E78.5 Hyperlipidemia, unspecified; F12.90 Cannabis use, unspecified, uncomplicated; I50.9 Heart failure, unspecified; J44.9 Chronic obstructive pulmonary disease, unspecified; F19.10 Other psychoactive substance abuse, uncomplicated; L97.529 Non-pressure chronic ulcer of other part of left foot with unspecified severity; Y90.3 Blood alcohol level of 60-79 mg/100 ml; Z91.19 Patient's noncompliance with other medical treatment and regimen; Z82.5 Family history of asthma and other chronic lower respiratory diseases; Z82.49 Family history of ischemic heart disease and other diseases of the circulatory system; Z82.0 Family history of epilepsy and other diseases of the nervous system
CPT/HCPCS: 36415; 73630; 80053; 80305; 81003; 83735; 84100; 85025; 85610; 85730; 87088; 94640; 94664; G0378; J0696; J1650; J2060; J2543; J3411; J3490; J7030